=== PATIENT | female | born 1945 | race Caucasian/White ===

== ENCOUNTER → 2016-10-12 | Outpatient (CLI) | payer OTHER ==
[~2016-10-12] MED LIST: IOPAMIDOL (ISOVUE-300) 100 ML BTL IV ONE
== END ==
LOC: FIMAGING 11:52
PROVIDERS: ATTEND Family Medicine
DX: R10.814 Left lower quadrant abdominal tenderness (principal); K57.30 Diverticulosis of large intestine without perforation or abscess without bleeding; K44.9 Diaphragmatic hernia without obstruction or gangrene; K80.70 Calculus of gallbladder and bile duct without cholecystitis without obstruction
CPT/HCPCS: 74177; Q9967

== ENCOUNTER → 2016-12-14 | Outpatient (CLI) | payer OTHER | LOC: BHFA 14:00 | PROVIDERS: ATTEND Internal Medicine Interventional Cardiology | DX: I48.91 Unspecified atrial fibrillation (principal) ==

== ENCOUNTER 2017-10-03 17:47 | Emergency (ER) | payer OTHER ==
[2017-10-03] MEDS ORDERED: NS 1,000 ML IV ONE ×2 (18:13→19:26)
[2017-10-03] MEDS ORDERED: ONDANSETRON 4 MG/2 ML VIAL IVP ONE (18:14)
[2017-10-03] MEDS ORDERED: HYDROmorphONE/DILAUDID 2 MG/ML INJ IVP ONE (18:14)
--- NOTE | 2017-10-03 18:18 | EDPHY ---
H & P <Danilo Carrington E - Last Filed: 10/03/17 19:56> Smoking Status: Never smoked <Chen Luis M - Last Filed: 10/03/17 22:09> Time Seen by Provider: 10/03/17 17:58 HPI/ROS: CHIEF COMPLAINT: Dysuria, frequency, abdominal pain on the left side HISTORY OF PRESENT ILLNESS: This is a 72-year-old female with a history of symptomatic bradycardia, status post pacemaker, intermittent atrial fibrillation who presents reporting left low back pain and frequency and dysuria. Approximately 2 weeks ago the patient had developed a "heaviness" in her left lower quadrant, chills, as well as lower left back pain. She felt like her symptoms were similar to prior episodes of diverticulitis. She was placed on Augmentin by her primary care physician. Symptoms seemed to clear. 6 days ago the patient developed dysuria and frequency and was seen the next day by her primary care physician. She was felt to have a UTI was placed on Bactrim as well as Pyridium. She has noted a little improvement in her symptoms. She is continuing to complain of lower back pain as well as nausea, now developing left lower quadrant and left upper quadrant abdominal discomfort as well as dysuria and frequency. She called her primary care physician's office 3 days ago and was advised that the culture results and antibiotic sensitivity were not available. No vomiting, no hematuria, no fevers. No chest pain or shortness of breath. No diarrhea. No vaginal discharge. REVIEW OF SYSTEMS: Aside from elements discussed in the HPI, a comprehensive 10-point review of systems was reviewed and is negative. PAST MEDICAL HISTORY: Hysterectomy, bradycardia, pacemaker placement, history of diverticulitis although CT scans demonstrate only diverticulosis and no diverticulitis. Patient reports that the CT scans were done after she had been on antibiotics. SOCIAL HISTORY: Nonsmoker. Here with her . VITAL SIGNS Reviewed by me. GENERAL: Well-developed, well-nourished, resting comfortably in no respiratory distress. Pleasant and conversant. HEENT: Atraumatic. Eyes: No icterus, no injection. Mouth: moist mucous membranes. No erythema or lesions. Neck: supple with no adenopathy. LUNGS: Clear to auscultation bilaterally, no wheezes, rhonchi or rales. CARDIAC: Regular rate and rhythm, no rubs, murmurs or gallops. ABDOMEN: Soft, mild left upper quadrant tenderness, left mid quadrant tenderness, left lower quadrant tenderness, no guarding or rebound. Nondistended. BACK: Left CVA tenderness. EXTREMITIES: No trauma. No edema. Range of motion is normal throughout. NEURO: Alert and oriented, grossly nonfocal. SKIN: Warm and dry, no rash. PSYCHIATRIC: Normal mentation, no agitation. (Chen Luis) Constitutional: Initial Vital Signs Temperature (C) 37.2 C 10/03/17 17:53 Heart Rate 89 10/03/17 17:53 Respiratory Rate 20 10/03/17 17:53 Blood Pressure 154/85 H 10/03/17 17:53 O2 Sat (%) 93 10/03/17 17:53 O2 Delivery Mode Room Air O2 (L/minute) 1 Allergies/Adverse Reactions: adhesive tape Allergy (Verified 10/03/17 20:21) Home Medications: Medication Instructions Recorded Aspirin [Aspirin 81mg (*)] 81 mg PO HS 12/07/13 Herbals/Supplements -Info Only 1 ea PO DAILY 12/07/13 Multivitamins [Multivitamin (*)] 1 each PO DAILY 12/07/13 Nebivolol HCl [Bystolic] 10 mg PO HS 12/07/13 [place]-3 Fatty Acids [Fish Oil 1000 1,000 mg PO DAILY 12/07/13 mg (*)] Vit C/Dl-E AC/Lut/Copper/Znox 1 each PO BID 12/07/13 [Preservision Softgel] Cefuroxime Axetil [Ceftin (*)] 250 mg PO BID 7 Days #14 tab 10/03/17 Ondansetron Odt [Zofran Odt 4 mg 4 mg PO Q6 PRN #8 tab 10/03/17 (RX)] Phenazopyridine HCl [Pyridium] 200 mg PO TID #6 tab 10/03/17 Medical Decision Making - Diagnostics Imaging: Discussed imaging studies w/ rn call center Radiologist <Danilo Carrington E - Last Filed: 10/03/17 19:56> <Chen Luis - Last Filed: 10/03/17 22:09> - Diagnostics Imaging Results: Imaging Impressions Abdomen CT 10/03/17 18:28 Impression: 1. Diverticulosis without evidence for diverticulitis. 2. Moderate right-sided constipation. 3. Cholelithiasis. 4. Large hiatal hernia. 5. Other chronic findings, as above. Results discussed with Dr. Danilo Carrington on 03 October 2017 at 1948 hours. ED Course/Re-evaluation: 7:50 p[address]. we discussed the CT and lab results. Patient and family feel very much reassured. She is well appearing and feels much better. She has received Rocephin. I will treat her also Pyridium. She declines narcotic pain medications. It is unclear whether not she ever had diverticulitis. We discussed indications for returning to the emergency department. She declines further workup or treatment. (Danilo Carrington) 72-year-old female presenting with complaints of left-sided abdominal pain and left flank pain. Patient was treated for presumed diverticulitis about 2 weeks ago with a 7 day course of Augmentin. She has been on Bactrim for 6 days little improvement in her urgency, frequency, dysuria. Review of the patient's records: Urine culture from September 29 demonstrates E coli which is resistant to Bactrim. The culture is sensitive to ceftriaxone as well as 2nd generation cephalosporins but not to 1st generation cephalosporins. It is sensitive to levofloxacin. Discussed these culture results with the patient. IV was placed in the patient received ceftriaxone 1 g IV. She received Dilaudid for discomfort. She received Zofran for pain. CT scan was obtained to evaluate for the ongoing left lower quadrant discomfort as well as to evaluate for other renal issues such as perinephric abscess, or complicated urinary infection. Patient's care was assumed by Dr. Carrington at 7:[address] results. Patient does not have a fever or elevated white count. Patient was written for Ceftin orally as she would prefer to avoid fluoroquinolones of possible. She understands that she may need to take levofloxacin if she is unable to obtain ceftin. (Chen Luis) Differential Diagnosis: Partial list of the Differential diagnosis considered include but were not limited to; urinary tract infection, pyelonephritis, diverticulitis and although unlikely based on the history and physical exam, I also considered abscess, kidney stone. (Danilo Carrington) - Data Points Laboratory Results: Laboratory Results 10/03/17 18:26 10/03/17 18:26 0410/03/17 10/03/17 18:26 18:26 18:03 WBC 9.13 10^3/uL 10^3/uL (3.80-9.50) RBC 4.84 10^6/uL 10^6/uL (4.18-5.33) Hgb 14.1 g/dL g/dL (12.6-16.3) Hct 41.7 % % (38.0-47.0) MCV 86.2 fL fL (81.5-99.8) MCH 29.1 pg pg (27.9-34.1) MCHC 33.8 g/dL g/dL (32.4-36.7) RDW 13.8 % % (11.5-15.2) Plt Count 250 10^3/uL 10^3/uL (150-400) MPV 9.1 fL fL (8.7-11.7) Neut % (Auto) 58.7 % % (39.3-74.2) Lymph % (Auto) 24.5 % % (15.0-45.0) [place] % (Auto) 13.4 % H % (4.5-13.0) Eos % (Auto) 2.8 % % (0.6-7.6) Baso % (Auto) 0.3 % % (0.3-1.7) Nucleat RBC Rel Count 0.0 % % (0.0-0.2) Absolute Neuts (auto) 5.35 10^3/uL 10^3/uL (1.70-6.50) Absolute Lymphs (auto) 2.24 10^3/uL 10^3/uL (1.00-3.00) Absolute Monos (auto) 1.22 10^3/uL H 10^3/uL (0.30-0.80) Absolute Eos (auto) 0.26 10^3/uL 10^3/uL (0.03-0.40) Absolute Basos (auto) 0.03 10^3/uL 10^3/uL (0.02-0.10) Absolute Nucleated RBC 0.00 10^3/uL 10^3/uL (0-0.01) Immature Gran % 0.3 % % (0.0-1.1) Immature Gran # 0.03 10^3/uL 10^3/uL (0.00-0.10) Sodium 137 mEq/L mEq/L (135-145) Potassium 4.3 mEq/L mEq/L (3.5-5.2) Chloride 100 mEq/L mEq/L (97-110) Carbon Dioxide 23 mEq/l mEq/l (22-31) Anion Gap 14 mEq/L mEq/L (8-16) BUN 22 mg/dL mg/dL (7-23) Creatinine 1.1 mg/dL H mg/dL (0.6-1.0) Estimated GFR 49 Glucose 103 mg/dL H mg/dL (70-100) Calcium 10.0 mg/dL mg/dL (8.5-10.4) Urine Color YELLOW Urine Appearance CLOUDY Urine pH 5.5 (5.0-7.5) Ur Specific [place] 1.025 (1.002-1.030) Urine Protein 2+ H (NEGATIVE) Urine Ketones 1+ H (NEGATIVE) Urine Blood 3+ H (NEGATIVE) Urine Nitrate POSITIVE H (NEGATIVE) Urine Bilirubin NEGATIVE (NEGATIVE) Urine Urobilinogen 0.2 EU EU (0.2-1.0) Ur Leukocyte Esterase 3+ H (NEGATIVE) Urine RBC 50-182 /hpf H /hpf (0-3) Urine WBC 50-182 /hpf H /hpf (0-3) Ur Epithelial Cells 3+ /lpf H /lpf (NONE-1+) Amorphous Sediment 2+ /hpf H /hpf (NONE-1+) Urine Bacteria 2+ /hpf H /hpf (NONE SEEN) Urine Glucose NEGATIVE (NEGATIVE) Medications Given: Discontinued Medications Hydromorphone HCl (Dilaudid) 1 mg IVP EDNOW ONE Stop: 10/03/17 18:15 Last Admin: 10/03/17 18:30 Dose: 1 mg Ceftriaxone Sodium/Dextrose (Rocephin 1 Gm (Premix)) 50 mls @ 100 mls/hr IV EDNOW ONE PRN Reason: Protocol Stop: 10/03/17 18:42 Last Admin: 10/03/17 18:40 Dose: 50 mls Sodium Chloride (Ns) 1,000 mls @ 0 mls/hr IV ONCE ONE; Wide Open PRN Reason: Protocol Stop: 10/03/17 18:14 Last Admin: 10/03/17 18:30 Dose: 1,000 mls Sodium Chloride (Ns) 1,000 mls @ 0 mls/hr IV EDNOW ONE; Wide Open PRN Reason: Protocol Stop: 10/03/17 19:27 Last Admin: 10/03/17 19:27 Dose: 1,000 mls Ondansetron HCl (Zofran) 4 mg IVP EDNOW ONE Stop: 10/03/17 18:15 Last Admin: 10/03/17 18:28 Dose: 4 mg Phenazopyridine HCl (Pyridium) 200 mg PO EDNOW ONE Stop: 10/03/17 19:57 Last Admin: 10/03/17 20:06 Dose: 200 mg Departure <Danilo Carrington - Last Filed: 10/03/17 19:56> <Chen Luis - Last Filed: 10/03/17 22:09> - Departure Disposition: Home, Routine, Self-Care Clinical Impression: Urinary tract infection Qualifiers: Urinary tract infection type: acute pyelonephritis Qualified Code(s): N10 - Acute pyelonephritis Abdominal pain Qualifiers: Abdominal location: left lower quadrant Qualified Code(s): R10.32 - Left lower quadrant pain Condition: Fair Instructions: Phenazopyridine (By mouth), Urinary Tract Infection in Women (ED) Additional Instructions: Take antibiotics as directed. Push fluids. Follow up if no improvement in the next 1-2 days. Referrals: Sonali Martinez MD [Primary Care Provider] - As per Instructions Prescriptions: Cefuroxime Axetil [Ceftin (*)] 250 mg PO BID 7 Days #14 tab Ondansetron Odt [Zofran Odt 4 mg (RX)] 4 mg PO Q6 PRN #8 tab PRN Reason: Nausea Phenazopyridine HCl [Pyridium] 200 mg PO TID #6 tab
[2017-10-03 18:33] LABS: PLATELET COUNT 250 10^3/uL (150-400)
[2017-10-03] MEDS ORDERED: IOPAMIDOL (ISOVUE-300) 100 ML BTL ONE (18:43)
[2017-10-03] MEDS ORDERED: PHENAZOPYRIDINE HCL 200 MG TAB PO ONE (19:56)
[2017-10-03] MEDS ORDERED: PHENAZOPYRIDINE HCL 200 MG TAB ONE (20:08)
[2017-10-03 20:19] VITALS: BP 122/68
== END 2017-10-03 20:20 | disposition home or self-care (01) ==
LOC: CED 17:47
DX: N10 Acute pyelonephritis (principal); B96.89 Other specified bacterial agents as the cause of diseases classified elsewhere; E86.9 Volume depletion, unspecified; Z79.82 Long term (current) use of aspirin; Z90.710 Acquired absence of both cervix and uterus; Z95.0 Presence of cardiac pacemaker
CPT/HCPCS: 74177; 96360; 96365; 96375; 99285; J0696; J1170; J2405; Q9967; 80048-PO; 81003-PO; 81015-PO; 85025-PO